=== PATIENT | male | born 1985 | race Caucasian/White ===

== ENCOUNTER 2016-09-19 02:14 | Emergency (ER) | payer MEDICAID ==
[~2016-09-19] VITALS: Ht 185.4 cm; Wt 77.1 kg
[2016-09-19 02:30] VITALS: BP 136/84
== END 2016-09-19 08:56 | disposition left against medical advice (07) ==
LOC: ER 02:20
DX: S60.551A Superficial foreign body of right hand, initial encounter (principal); Z53.21 Procedure and treatment not carried out due to patient leaving prior to being seen by health care provider; W45.8XXA Other foreign body or object entering through skin, initial encounter; Y93.89 Activity, other specified; Y99.8 Other external cause status; Y92.89 Other specified places as the place of occurrence of the external cause
CPT/HCPCS: 73130

== ENCOUNTER 2018-06-03 23:33 | Emergency (ER) | payer MEDICAID ==
[~2018-06-03] VITALS: Ht 185.4 cm; Wt 75.3 kg
[2018-06-03 23:52] VITALS: BP 131/89
[2018-06-04] MEDS ORDERED: cefTRIAXone SOD 1,000 MG VL IM ONE (01:15)
[2018-06-04] MEDS ORDERED: TETANUS-DIPTH-ACEL PERTUSSIS 0.5ML SYRG IM ONE (01:15)
== END 2018-06-04 01:58 | disposition home or self-care (01) ==
LOC: ER 23:33
DX: L03.011 Cellulitis of right finger (principal); F17.210 Nicotine dependence, cigarettes, uncomplicated
CPT/HCPCS: 10060; 90471; 90715; 96372; 99283; J0696